=== PATIENT | female | born 1990 | race Hispanic/Latino ===

== ENCOUNTER 2019-04-13 16:53 | Emergency (ER) | payer BC ==
[2019-04-13] MEDS ORDERED: NA CHLORIDE 0.9% 1,000 ML ONE (17:21)
[2019-04-13] MEDS ORDERED: FAMOTIDINE 20 MG/2 ML VIAL IV ONE (17:21)
[2019-04-13] MEDS ORDERED: ONDANSETRON 4 MG/2 ML VIAL ONE ×2 (17:21→20:10)
[2019-04-13 18:04] LABS: Absolute Lymphocytes (CBC) 2.3 K/uL (0.7-4.9); Basophils % 0.3 % (0-1.3); Hematocrit 39.4 % (36.0-45.0); Lymphocytes % 21.7 % (15.3-44.8); MPV 8.6 fL (7.6-11.3); RBC Red Blood Cell Count 4.84 M/uL (3.86-4.86)
[2019-04-13 18:05] LABS: Urine Blood TRACE (NEG); Urine Glucose NEGATIVE (NEG); Urine Protein NEGATIVE (NEG)
[2019-04-13] MEDS ORDERED: LIDOCAINE VISCOUS 2% SOLN 15 ML UDC ONE (18:37)
[2019-04-13] MEDS ORDERED: KETOROLAC 30 MG/ML INJ ONE (18:37)
[2019-04-13] MEDS ORDERED: MAGNE/ALUM HYDROXD 30 ML UCUP ONE (18:37)
[2019-04-13 18:44] LABS: ALT/SGPT 40 U/L (12-78); AST/SGOT 18 U/L (15-37); Albumin 3.9 g/dL (3.4-5.0); Alkaline Phosphatase 86 U/L (45-117); BUN Blood Urea Nitrogen 5 mg/dL (7-18); Bicarbonate 26 mmol/L (21-32); Bilirubin Direct < 0.1 mg/dL (0-0.2); Bilirubin Total 0.3 mg/dL (0.2-1.0); Glucose Level 106 mg/dL (74-106); Lipase 204 U/L (73-393); Potassium 4.1 mmol/L (3.5-5.1); Protein, Total 8.2 g/dL (6.4-8.2); Sodium Level 141 mmol/L (136-145)
[2019-04-13 19:01] LABS: Urine Bacteria <20 /HPF (<20); Urine Culture Reflex Order NOT NEEDED; Urine RBC <5 /HPF (NONE SEEN)
[2019-04-13] MEDS ORDERED: MORPHINE 2 MG/ML SYR ONE (20:08)
--- NOTE | 2019-04-13 20:40 | RAD REPORT ---
EXAM DESCRIPTION: CTAbdomen Pelvis W Contrast - 04/13/2019 8:32 pm CLINICAL HISTORY: Abdominal pain. ABD PAIN COMPARISON: CT HEAD CSPINE MPR WO CONTRAST dated 01/28/2015No comparisons TECHNIQUE: Biphasic CT imaging of the abdomen and pelvis was performed with 100 ml non-ionic IV cont rast. All CT scans are performed using dose optimization technique as appropriate and may include automated exposure control or mA/KV adjustment according to patient size. FINDINGS: The lung bases are clear.Cholecystectomy clips. The liver, spleen, pancreas, adrenal glands and kidneys are within normal limits. Small cyst is seen cortex right kidney. No bowel obstruction, free air, free fluid or abscess. Trace pelvic free fluid. The appendix is carlos l. No evidence of significant lymphadenopathy. No suspicious bony findings. IMPRESSION: No acute intra-abdominal or pelvic finding.
--- NOTE | 2019-04-13 21:31 | EDPHYS ---
Physician Documentation [facility] Name: Ofe Fishman Age: 28 yrs Sex: Female : 1990 Arrival Date: 04/13/2019 Time: 16:55 Bed 24 Private MD: ED Physician Amado Foreman HPI: 04/13 17:15 This 28 yrs old Female presents to ER via Ambulatory with complaints of cp Epigastric Pain. 17:15 The patient presents with abdominal pain in the epigastric area. 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 - Social history:: Smoking status: Patient/guardian denies using tobacco. - Ebola Screening: : No symptoms or risks identified at this time. ROS: 17:25 Constitutional: Negative for body aches, chills, fever, poor PO intake. cp 17:25 Eyes: Negative for injury, pain, redness, and discharge. cp 17:25 ENT: Negative for drainage from ear(s), ear pain, sore throat, difficulty swallowing, difficulty handling secretions. 17:25 Cardiovascular: Negative for chest pain, palpitations. 17:25 Respiratory: Negative for cough, shortness of breath, wheezing. 17:25 Abdomen/GI: Positive for abdominal pain, nausea, diarrhea, of the epigastric area, Negative for vomiting, constipation, anorexia, dysphagia, black/tarry stool, rectal bleeding. 17:25 Back: Positive for pain at rest, of the low back area. 17:25 : Negative for urinary symptoms. 17:25 Skin: Negative for cellulitis, rash. 17:25 Neuro: Negative for altered mental status, headache, weakness. 17:25 All other systems are negative. Exam: 17:30 Constitutional: The patient appears in no acute distress, alert, awake, non-toxic, well cp developed, well nourished. 17:30 Head/Face: Normocephalic, atraumatic. cp 17:30 Eyes: Periorbital structures: appear normal, Pupils: equal, round, and reactive to light and accomodation, Extraocular movements: intact throughout, Conjunctiva: normal, no exudate, no injection, Sclera: no appreciated abnormality, Lids and lashes: appear normal, bilaterally. 17:30 ENT: External ear(s): are unremarkable, Ear canal(s): are normal, clear, TM's: dullness, bilaterally, Nose: is normal, Mouth: Lips: moist, Oral mucosa: pink and intact, moist, Posterior pharynx: is normal, airway is patent, no erythema, no exudate. 17:30 Neck: ROM/movement: is normal, is supple, without pain, no range of motions limitations, no nuchal rigidity. 17:30 Chest/axilla: Inspection: normal, Palpation: is normal, no crepitus, no tenderness. 17:30 Cardiovascular: Rate: normal, Rhythm: regular. 17:30 Respiratory: the patient does not display signs of respiratory distress, Respirations: normal, no use of accessory muscles, no retractions, no splinting, no tachypnea, labored breathing, is not present, shallow respirations, are not present, Breath sounds: are clear throughout, no decreased breath sounds, no stridor, no wheezing. 17:30 Abdomen/GI: Inspection: abdomen appears normal, Bowel sounds: active, all quadrants, Palpation: soft, in all quadrants, moderate abdominal tenderness, in the epigastric area, rebound tenderness, is not appreciated, voluntary guarding, is elicited in the epigastric area. 17:30 Back: pain, that is very mild, of the low back area, ROM is normal. 17:30 Skin: no rash present. 17:30 Neuro: Orientation: to person, place \T\ time. Mentation: is normal. Vital Signs: 16:56 BP 120 / 82; Pulse 96; Resp 18; Temp 98.1; Pulse Ox 100% on R/A; Weight 63.5 kg; Height la1 4 ft. 11 in. (149.86 cm); 19:53 BP 121 / 68; Pulse 95; Resp 17; Pulse Ox 100% on R/A; mg2 21:00 BP 115 / 78; Pulse 98; Resp 18; Pulse Ox 100% on R/A; mg2 22:01 BP 123 / 77; Pulse 90; Resp 18; Temp 98.5; Pulse Ox 100% on R/A; Pain 1/10; mg2 16:56 Body Mass Index 28.28 (63.50 kg, 149.86 cm) la1 MDM: 17:05 Patient medically screened. cp 18:00 Differential diagnosis: appendicitis, bowel obstruction, gastritis, pancreatitis, cp Peptic Ulcer Disease, Perf. Duodenal Ulcer, Perf. Gastric Ulcer, Pyelonephritis, Ureterolithiasis, urinary tract infection. 21:30 Data reviewed: vital signs, nurses notes, lab test result(s), radiologic studies, CT cp scan. 21:30 Counseling: I had a detailed discussion with the patient and/or guardian regarding: the cp historical points, exam findings, and any diagnostic results supporting the discharge/admit diagnosis, lab results, radiology results, to return to the emergency department if symptoms worsen or persist or if there are any questions or concerns that arise at home. Response to treatment: the patient's symptoms have markedly improved after treatment. Special discussion: Based on the patient's Hx, exam, and Dx evaluation, there is no indication for emergent surgery or inpatient Tx. It is understood by the patient/guardian that if the Sx's persist or worsen they need to return immediately for re-evaluation. ED course: VSS. Pain and nausea improved. CT negative for acute findings. Patient reports history of cholecystectomy. Will discharge to home for continued monitoring. Recommend OTC Prilosec or Nexium daily. 04/13 17:10 Order name: Basic Metabolic Panel; Complete Time: 19:16 04/13 21:08 Interpretation: BUN 5; GFR 82. 04/13 17:10 Order name: CBC with Diff; Complete Time: 18:16 04/13 18:16 Interpretation: Reviewed. 04/13 17:10 Order name: Creatinine for Radiology; Complete Time: 19:16 04/13 17:10 Order name: Hepatic Function; Complete Time: 19:16 04/13 17:10 Order name: Lipase; Complete Time: 19:16 04/13 18:01 Order name: Urine Microscopic Only; Complete Time: 19:16 [facility] 04/13 18:02 Order name: Urine Dipstick--Ancillary (enter results) [facility] 04/13 18:02 Order name: Urine --Ancillary (enter results) [facility] 04/13 18:05 Order name: Urine --Ancillary [facility] 04/13 18:05 Order name: Urine Dipstick-Ancillary [facility] 04/13 20:04 Order name: CT Abd/Pelvis - IV Contrast Only; Complete Time: 21:08 cp 04/13 17:10 Order name: IV Saline Lock; Complete Time: 18:23 cp 04/13 17:10 Order name: Labs collected and sent; Complete Time: 18:23 cp 04/13 17:10 Order name: Urine Dipstick-Ancillary (obtain specimen); Complete Time: 18:03 cp 04/13 17:10 Order name: Urine Test (obtain specimen); Complete Time: 18:02 cp 04/13 21:08 Order name: PO challenge; Complete Time: 21:37 cp Administered Medications: 18:05 Drug: NS 0.9% 1000 ml Route: IV; Rate: 1 bolus; Site: right antecubital; mg2 19:54 Follow up: Response: No adverse reaction; IV Status: Completed infusion; IV Intake: mg2 1000ml 18:05 Drug: Zofran 4 mg Route: IVP; Site: right antecubital; mg2 19:54 Follow up: Response: No adverse reaction mg2 18:05 Drug: Pepcid 20 mg Route: IVP; Site: right antecubital; mg2 19:54 Follow up: Response: No adverse reaction mg2 18:42 Drug: GI Cocktail without - (Maalox Suspension 30 ml, Lidocaine Liquid 2 % 15 mg2 ml) Route: PO; 19:53 Follow up: Response: No adverse reaction mg2 18:42 Drug: TORadol 30 mg Route: IVP; Site: right antecubital; mg2 19:53 Follow up: Response: No adverse reaction mg2 20:10 Drug: morphine 2 mg Route: IVP; Site: right antecubital; mg2 21:37 Follow up: Response: No adverse reaction; Marked relief of symptoms mg2 20:10 Drug: Zofran 4 mg Route: IVP; Site: right antecubital; mg2 21:37 Follow up: Response: No adverse reaction; Marked relief of symptoms mg2 Disposition: 04/13/19 21:30 Discharged to Home. Impression: Upper abdominal pain, unspecified. - Condition is Stable. - Discharge Instructions: Abdominal Pain, Adult. - Prescriptions for Bentyl 20 mg Oral Tablet - take 2 tablet by ORAL route every 6 hours As needed; 40 tablet. Zofran 4 mg Oral Tablet - take 1 tablet by ORAL route every 12 hours As needed; 20 tablet. - Medication Reconciliation Form, Thank You Letter, Antibiotic Education, Prescription Opioid Use form. - Follow up: Ashu Harden MD; When: 2 - 3 days; Reason: Worsening of condition. - Problem is new. - Symptoms have improved. Addendum: 04/16/2019 00:43 Co-signature as Attending Physician, Amado Foreman MD. r n Signatures: Dispatcher [employer] [facility] Amado Foreman MD MD rn Khris Mary RN RN la1 Eduard Crabtree PA PA cp Cuong Luo RN RN mg2 Corrections: (The following items were deleted from the chart) 04/13 20:52 19:17 Abdomen With Erect+RAD.RAD.BRZ ordered. [facility] 22:02 21:30 04/13/2019 21:30 Discharged to Home. Impression: Upper abdominal pain, mg2 unspecified. Condition is Stable. Forms are Medication Reconciliation Form, Thank You Letter, Antibiotic Education, Prescription Opioid Use. Follow up: Ashu Harden; When: 2 - 3 days; Reason: Worsening of condition. Problem is new. Symptoms have improved. cp
--- NOTE | 2019-04-13 21:31 | ER ---
Nurse's Notes [facility] Name: Ofe Fishman Age: 28 yrs Sex: Female : 1990 Arrival Date: 04/13/2019 Time: 16:55 Bed 24 Private MD: Diagnosis: Upper abdominal pain, unspecified Presentation: 04/13 16:56 Presenting complaint: Patient states: upper abd pain for the last three days with la1 diarrhea and nausea. Transition of care: patient was not received from another setting of care. Onset of symptoms was April 13, 2019. Risk Assessment: Do you want to hurt yourself or someone else? Patient reports no desire to harm self or others. Initial Sepsis Screen: Does the patient meet any 2 criteria? No. Patient's initial sepsis screen is negative. Does the patient have a suspected source of infection? No. Patient's initial sepsis screen is negative. Care prior to arrival: None. 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 - Social history:: Smoking status: Patient/guardian denies using tobacco. - Ebola Screening: : No symptoms or risks identified at this time. Screenin:52 Abuse screen: Denies threats or abuse. Denies injuries from another. Nutritional mg2 screening: No deficits noted. Tuberculosis screening: No symptoms or risk factors identified. Fall Risk IV access (20 points). Assessment: 19:00 General: Appears in no apparent distress. uncomfortable, Behavior is cooperative, mg2 restless, in pain. 19:00 Pain: Complains of pain in abdomen. Neuro: Level of Consciousness is awake, alert, mg2 obeys commands, Oriented to person, place, time, situation. Cardiovascular: Capillary refill < 3 seconds Patient's skin is warm and dry. Respiratory: Airway is patent Respiratory effort is even, unlabored, Respiratory pattern is regular, symmetrical. GI: Abdomen is non-distended, Reports lower abdominal pain, upper abdominal pain, nausea. : No signs and/or symptoms were reported regarding the genitourinary system. EENT: No signs and/or symptoms were reported regarding the EENT system. Derm: Skin is intact, is healthy with good turgor, Skin is pink, warm \T\ dry. normal. Musculoskeletal: Circulation, motion, and sensation intact. Capillary refill < 3 seconds. 20:10 Reassessment: patient is vomiting. provider informed. mg2 22:01 Reassessment: Patient appears in no apparent distress at this time. Patient is alert, mg2 oriented x 3, equal unlabored respirations, skin warm/dry/pink. Patient denies pain at this time. Patient states feeling better. Vital Signs: 16:56 BP 120 / 82; Pulse 96; Resp 18; Temp 98.1; Pulse Ox 100% on R/A; Weight 63.5 kg; Height la1 4 ft. 11 in. (149.86 cm); 19:53 BP 121 / 68; Pulse 95; Resp 17; Pulse Ox 100% on R/A; mg2 21:00 BP 115 / 78; Pulse 98; Resp 18; Pulse Ox 100% on R/A; mg2 22:01 BP 123 / 77; Pulse 90; Resp 18; Temp 98.5; Pulse Ox 100% on R/A; Pain 1/10; mg2 16:56 Body Mass Index 28.28 (63.50 kg, 149.86 cm) la1 ED Course: 16:55 Patient arrived in ED. as 16:56 Triage completed. la1 16:57 Arm band placed on left wrist. la1 16:58 Eduard Crabtree PA is PHCP. cp 16:58 Amado Foreman MD is Attending Physician. cp 17:12 Cuong Luo, GUY is Primary Nurse. mg2 19:30 Inserted saline lock: 20 gauge in right antecubital area, using aseptic technique. mg2 19:52 Patient has correct armband on for positive identification. Pulse ox on. NIBP on. Door mg2 closed. Warm blanket given. 19:53 No provider procedures requiring assistance completed. mg2 20:32 CT Abd/Pelvis - IV Contrast Only In Process Unspecified. EDMS 20:32 CT completed. Patient tolerated procedure well. Patient moved back from CT. kw1 21:29 Ashu Harden MD is Referral Physician. cp 22:02 IV discontinued, intact, bleeding controlled, No redness/swelling at site. Pressure mg2 dressing applied. Administered Medications: 18:05 Drug: NS 0.9% 1000 ml Route: IV; Rate: 1 bolus; Site: right antecubital; mg2 19:54 Follow up: Response: No adverse reaction; IV Status: Completed infusion; IV Intake: mg2 1000ml 18:05 Drug: Zofran 4 mg Route: IVP; Site: right antecubital; mg2 19:54 Follow up: Response: No adverse reaction mg2 18:05 Drug: Pepcid 20 mg Route: IVP; Site: right antecubital; mg2 19:54 Follow up: Response: No adverse reaction mg2 18:42 Drug: GI Cocktail without - (Maalox Suspension 30 ml, Lidocaine Liquid 2 % 15 mg2 ml) Route: PO; 19:53 Follow up: Response: No adverse reaction mg2 18:42 Drug: TORadol 30 mg Route: IVP; Site: right antecubital; mg2 19:53 Follow up: Response: No adverse reaction mg2 20:10 Drug: morphine 2 mg Route: IVP; Site: right antecubital; mg2 21:37 Follow up: Response: No adverse reaction; Marked relief of symptoms mg2 20:10 Drug: Zofran 4 mg Route: IVP; Site: right antecubital; mg2 21:37 Follow up: Response: No adverse reaction; Marked relief of symptoms mg2 Intake: 19:54 IV: 1000ml; Total: 1000ml. mg2 Outcome: 21:30 Discharge ordered by . carla 22:01 Discharged to home ambulatory. mg2 22:01 Condition: good 22:01 Discharge instructions given to patient, Instructed on discharge instructions, follow up and referral plans. medication usage, Demonstrated understanding of instructions, follow-up care, medications, Prescriptions given X 2. 22:02 Patient left the ED. mg2 Signatures: Dispatcher [employer] Meche Novak Lee RN RN la1 Eduard Crabtree PA PA cp Wilhelm, Kimberly kw1 Cuong Luo RN RN mg2
[2019-04-13 23:15] VITALS: O2SAT 100
[2019-04-13 23:19] VITALS: BP 123/77; TEMP 98.5
== END 2019-04-13 22:02 | disposition home or self-care (01) ==
LOC: ER 16:53
DX: R10.10 Upper abdominal pain, unspecified (principal)
CPT/HCPCS: 96361; 85025; 80048; 36415; 81025; 80076; 83690; 74177; 96375; 96374; 99284; Q9967; J2270; J7030; J2405 ×2; 81003; 81015

== ENCOUNTER 2019-04-15 19:24 | Emergency (ER) | payer BC ==
[2019-04-15] MEDS ORDERED: KETOROLAC 30 MG/ML INJ ONE (20:25)
[2019-04-15] MEDS ORDERED: METRONIDAZOLE 500mg IVPB 500 MG/100 ML BAG IV ONE (20:25)
[2019-04-15] MEDS ORDERED: ONDANSETRON 4 MG/2 ML VIAL ONE (20:25)
[2019-04-15] MEDS ORDERED: Levofloxacin500mg IV 500 MG/100 ML BAG IV ONE (20:25)
[2019-04-15] MEDS ORDERED: NA CHLORIDE 0.9% 1,000 ML ONE (20:26)
[2019-04-15 20:33] LABS: Basophils % 0.4 % (0-1.3); Hematocrit 37.4 % (36.0-45.0); Lymphocytes % 20.3 % (15.3-44.8); MPV 8.5 fL (7.6-11.3)
[2019-04-15 20:38] LABS: Urine Blood NEGATIVE (NEG); Urine Glucose NEGATIVE (NEG); Urine Protein NEGATIVE (NEG); Urine Specific Gravity 1.015 (1.005-1.030); Urine pH 7.5 (5.0-7.0)
[2019-04-15 20:44] LABS: Urine Bacteria <20 /HPF (<20); Urine Culture Reflex Order NOT NEEDED; Urine RBC <5 /HPF (NONE SEEN)
[2019-04-15 20:49] LABS: ALT/SGPT 30 U/L (12-78); AST/SGOT 15 U/L (15-37); Alkaline Phosphatase 80 U/L (45-117); BUN Blood Urea Nitrogen 7 mg/dL (7-18); Bicarbonate 29 mmol/L (21-32); Bilirubin Direct 0.1 mg/dL (0-0.2); Bilirubin Total 0.3 mg/dL (0.2-1.0); Glucose Level 96 mg/dL (74-106); Lipase 211 U/L (73-393); Sodium Level 140 mmol/L (136-145)
--- NOTE | 2019-04-15 21:23 | EDPHYS ---
Physician Documentation [facility] Name: Ofe Fishman Age: 28 yrs Sex: Female : 1990 Arrival Date: 04/15/2019 Time: 19:27 Bed 17 Private MD: ED Physician Ashu Cagle HPI: 04/15 21:05 This 28 yrs old Female presents to ER via Ambulatory with complaints of wa Abdominal Pain, Back Pain. 21:07 The patient presents with abdominal pain in the epigastric area, radiates to back. wa diarrhea. Onset: The symptoms/episode began/occurred 4 day(s) ago. The symptoms radiate to back. Associated signs and symptoms: Pertinent positives: diarrhea, nausea, Pertinent negatives: shortness of breath, vaginal discharge, vomiting. The symptoms are described as achy, crampy. Modifying factors: The symptoms are alleviated by nothing, the symptoms are aggravated by nothing. Severity of pain: At its worst the pain was moderate in the emergency department the pain is actually worse moderately. The patient has not experienced similar symptoms in the past. The patient has been recently seen by a physician: in this ED a couple days ago. seen here for same. states still with diarrhea. abd pain worsening. 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 - Social history:: Smoking status: Patient/guardian denies using tobacco. - Ebola Screening: : No symptoms or risks identified at this time. - Family history:: not pertinent. - Hospitalizations: : No recent hospitalization is reported. ROS: 21:16 Constitutional: Negative for fever, chills, and weight loss, Eyes: Negative for injury, wa pain, redness, and discharge, ENT: Negative for injury, pain, and discharge, Neck: Negative for injury, pain, and swelling, Cardiovascular: Negative for chest pain, palpitations, and edema, Respiratory: Negative for shortness of breath, cough, wheezing, and pleuritic chest pain, Back: Negative for injury and pain, : Negative for injury, bleeding, discharge, and swelling, MS/Extremity: Negative for injury and deformity, Skin: Negative for injury, rash, and discoloration, Neuro: Negative for headache, weakness, numbness, tingling, and seizure, Psych: Negative for depression, anxiety, suicide ideation, homicidal ideation, and hallucinations. 21:16 Abdomen/GI: Positive for abdominal pain, nausea, diarrhea. 21:16 All other systems are negative. Exam: 21:16 Constitutional: This is a well developed, well nourished patient who is awake, alert, wa and in no acute distress. Head/Face: Normocephalic, atraumatic. Eyes: Pupils equal round and reactive to light, extra-ocular motions intact. Lids and lashes normal. Conjunctiva and sclera are non-icteric and not injected. Cornea within normal limits. Periorbital areas with no swelling, redness, or edema. ENT: Nares patent. No nasal discharge, no septal abnormalities noted. Tympanic membranes are normal and external auditory canals are clear. Oropharynx with no redness, swelling, or masses, exudates, or evidence of obstruction, uvula midline. Mucous membranes moist. Neck: Trachea midline, no thyromegaly or masses palpated, and no cervical lymphadenopathy. Supple, full range of motion without nuchal rigidity, or vertebral point tenderness. No Meningismus. Chest/axilla: Normal chest wall appearance and motion. Nontender with no deformity. No lesions are appreciated. Cardiovascular: Regular rate and rhythm with a normal S1 and S2. No gallops, murmurs, or rubs. Normal PMI, no JVD. No pulse deficits. Respiratory: Lungs have equal breath sounds bilaterally, clear to auscultation and percussion. No rales, rhonchi or wheezes noted. No increased work of breathing, no retractions or nasal flaring. Back: No spinal tenderness. No costovertebral tenderness. Full range of motion. Skin: Warm, dry with normal turgor. Normal color with no rashes, no lesions, and no evidence of cellulitis. MS/ Extremity: Pulses equal, no cyanosis. Neurovascular intact. Full, normal range of motion. Neuro: Awake and alert, GCS 15, oriented to person, place, time, and situation. Cranial nerves II-XII grossly intact. Motor strength 5/5 in all extremities. Sensory grossly intact. Cerebellar exam normal. Normal gait. Psych: Awake, alert, with orientation to person, place and time. Behavior, mood, and affect are within normal limits. 21:16 Abdomen/GI: Inspection: abdomen appears normal, Bowel sounds: normal, in all quadrants, Palpation: soft, in all quadrants, moderate abdominal tenderness, in the epigastric area and left upper quadrant. Vital Signs: 19:42 BP 127 / 80; Pulse 68; Resp 18; Temp 98; Pulse Ox 100% ; Weight 63.5 kg; Height 4 ft. ea 11 in. (149.86 cm); Pain 10/10; 20:52 BP 104 / 44; Pulse 58; Resp 16; Pulse Ox 100% on R/A; wh 21:35 BP 111 / 61; Pulse 65; Resp 18; Pulse Ox 100% on R/A; wh 19:42 Body Mass Index 28.28 (63.50 kg, 149.86 cm) ea MDM: 19:34 Patient medically screened. pr 21:17 Data reviewed: vital signs, nurses notes. pr 21:18 Differential diagnosis: diverticulitis, non-specific abd pain, colitis?. ED course: pr pt's last CT a couple days back negative. still with pain and diarrhea. already post cholecystectomy in 2013. consider colitis. will give abx. plan to d/c with same and advise close f/u. unlikely acute appy based on clinical exam and presentation. 21:21 Response to treatment: the patient's symptoms have markedly improved after treatment. pr ED course: labs noted wnl. stool studies pending. will d/c home. 04/15 20: Order name: Basic Metabolic Panel; Complete Time: 21:02 pr 04/15 20: Order name: CBC with Diff; Complete Time: 21:02 pr 04/15 20: Order name: Hepatic Function; Complete Time: 21:02 pr 04/15 20: Order name: Lipase; Complete Time: 21:03 pr 04/15 20: Order name: Urine Microscopic Only; Complete Time: 21:03 pr 04/15 20:02 Order name: Fecal Leukocyte Stain pr 04/15 20:02 Order name: Occult Blood pr 04/15 20: Order name: Rotavirus Antigen pr 04/15 20: Order name: Stool Culture pr 04/15 20:26 Order name: Urine Dipstick--Ancillary (enter results); Complete Time: 21:02 cm6 04/15 20:26 Order name: Urine --Ancillary (enter results); Complete Time: 21:02 [facility] 04/15 20: Order name: IV Saline Lock; Complete Time: : pr 04/15 20: Order name: Labs collected and sent; Complete Time: : pr 04/15 20: Order name: Urine Dipstick-Ancillary (obtain specimen); Complete Time: pr 04/15 20: Order name: Urine Test (obtain specimen); Complete Time: : pr Administered Medications: 20:28 Drug: TORadol 30 mg Route: IVP; Site: right antecubital; 21:36 Follow up: Response: No adverse reaction; Pain is decreased 20:30 Drug: Zofran 4 mg Route: IVP; Site: right antecubital; 21:36 Follow up: Response: No adverse reaction; Nausea is decreased 20:32 Drug: NS 0.9% 1000 ml Route: IV; Rate: 1 bolus; Site: right antecubital; 21:36 Follow up: Response: No adverse reaction; IV Status: Completed infusion 20:34 Drug: Flagyl 500 mg Volume: 100 ml; Route: IVPB; Rate: 200 ml/hr; Infused Over: 30 wh mins; Site: right antecubital; 21:36 Follow up: Response: No adverse reaction; IV Status: Completed infusion 21:03 Drug: LevaQUIN 500 mg Volume: 100 ml; Route: IVPB; Infused Over: 60 mins; Site: right antecubital; 21:36 Follow up: Response: No adverse reaction; IV Status: Completed infusion Disposition: 04/15/19 21:22 Discharged to Home. Impression: abdominal pain, diarrhea. - Condition is Stable. - Discharge Instructions: Abdominal Pain, Adult, [id number], Diarrhea, Adult, [id number]. - Prescriptions for Zofran 4 mg Oral Tablet - take 1 tablet by ORAL route every 12 hours As needed; 20 tablet. Flagyl 500 mg Oral Tablet - take 1 tablet by ORAL route every 12 hours for 7 days; 14 tablet. Cipro 500 mg Oral Tablet - take 1 tablet by ORAL route every 12 hours for 7 days; 14 tablet. - Medication Reconciliation Form, Thank You Letter, Antibiotic Education, Prescription Opioid Use form. - Follow up: Ashu Harden MD; When: 1 - 2 days; Reason: Recheck today's complaints. - Problem is new. - Symptoms have improved. - Notes: take antibiotics as prescribed and follow up the gastro doctor as discussed. return if worsening. you may take tylenol for pain Signatures: Dispatcher [employer] EDSujey Louise, Sadia Danielle RN, ea [facility] MD wa Corrections: (The following items were deleted from the chart) 21:39 21:22 04/15/2019 21:22 Discharged to Home. Impression: abdominal pain; diarrhea. Condition is Stable. Forms are Medication Reconciliation Form, Thank You Letter, Antibiotic Education, Prescription Opioid Use. Follow up: Ashu Harden; When: 1 - 2 days; Reason: Recheck today's complaints. Problem is new. Symptoms have improved. wa
--- NOTE | 2019-04-15 21:23 | ER ---
Nurse's Notes [facility] Name: Ofe Fishman Age: 28 yrs Sex: Female : 1990 Arrival Date: 04/15/2019 Time: 19:27 Bed 17 Private MD: Diagnosis: abdominal pain;diarrhea Presentation: 04/15 19:39 Presenting complaint: Patient states: Reports epigastric pain that goes thru the back. ea Pt reports she had similar symptoms on Sunday and was seen in the ED and was sent home with nausea medication and antidiarrheals. Pt reports pain has worsened and now she is having constipation and diarrhea. Transition of care: patient was not received from another setting of care. Onset of symptoms was April 15, 2019. Risk Assessment: Do you want to hurt yourself or someone else? Patient reports no desire to harm self or others. Initial Sepsis Screen: Does the patient meet any 2 criteria? No. Patient's initial sepsis screen is negative. Does the patient have a suspected source of infection? No. Patient's initial sepsis screen is negative. Care prior to arrival: None. 19:39 Method Of Arrival: Ambulatory ea 19:39 Acuity: URIEL 3 ea Triage Assessment: 19:43 General: Appears uncomfortable, Behavior is appropriate for age. Pain: Complains of ea pain in epigastric area Pain radiates to back Pain currently is 10 out of 10 on a pain scale. Pain began 2-3 days ago. Is continuous. Neuro: Level of Consciousness is awake, alert, obeys commands, Oriented to person, place, time, situation. Cardiovascular: Patient's skin is warm and dry. Respiratory: Airway is patent Respiratory effort is even, unlabored, Respiratory pattern is regular, symmetrical. GI: Reports upper abdominal pain, constipation, diarrhea, nausea. Derm: Skin is pink, warm \T\ dry. 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 - Social history:: Smoking status: Patient/guardian denies using tobacco. - Ebola Screening: : No symptoms or risks identified at this time. - Family history:: not pertinent. - Hospitalizations: : No recent hospitalization is reported. Screenin:42 Abuse screen: Denies threats or abuse. Nutritional screening: No deficits noted. ea Tuberculosis screening: No symptoms or risk factors identified. Fall Risk None identified. Assessment: 20:49 Reassessment: Patient appears in no apparent distress at this time. No changes from previously documented assessment. Patient and/or family updated on plan of care and expected duration. Pain level reassessed. Patient is alert, oriented x 3, equal unlabored respirations, skin warm/dry/pink. 20:50 General: Appears in no apparent distress. Behavior is calm, cooperative, appropriate wh for age. Pain: Complains of pain in epigastric area Pain radiates to back Pain began 2-3 days ago. Neuro: Level of Consciousness is awake, alert, obeys commands, Oriented to person, place, time, situation, Appropriate for age. Cardiovascular: Heart tones S1 S2. Respiratory: Airway is patent Respiratory effort is even, unlabored, Respiratory pattern is regular, symmetrical, Breath sounds are clear bilaterally. GI: Abdomen is flat, non-distended, Bowel sounds present X 4 quads. Abd is soft and non tender X 4 quads. GI: Reports constipation, diarrhea. : No signs and/or symptoms were reported regarding the genitourinary system. EENT: No signs and/or symptoms were reported regarding the EENT system. Derm: Skin is intact, is healthy with good turgor, Skin is pink, warm \T\ dry. normal. Musculoskeletal: Circulation, motion, and sensation intact. 21:34 Reassessment: Patient appears in no apparent distress at this time. No changes from previously documented assessment. Patient and/or family updated on plan of care and expected duration. Pain level reassessed. Patient is alert, oriented x 3, equal unlabored respirations, skin warm/dry/pink. Patient denies pain at this time. Patient states feeling better. Patient states symptoms have improved. Vital Signs: 19:42 BP 127 / 80; Pulse 68; Resp 18; Temp 98; Pulse Ox 100% ; Weight 63.5 kg; Height 4 ft. ea 11 in. (149.86 cm); Pain 10/10; 20:52 BP 104 / 44; Pulse 58; Resp 16; Pulse Ox 100% on R/A; wh 21:35 BP 111 / 61; Pulse 65; Resp 18; Pulse Ox 100% on R/A; wh 19:42 Body Mass Index 28.28 (63.50 kg, 149.86 cm) ea ED Course: 19:27 Patient arrived in ED. cf2 19:34 Ashu Cagle MD is Attending Physician. wa 19:41 Triage completed. ea 19:43 Patient has correct armband on for positive identification. Placed in gown. Bed in low ea position. Call light in reach. 19:43 Arm band placed on right wrist. Patient placed in an exam room, on a stretcher, on ea pulse oximetry. 19:49 Sadia Caruso is Primary Nurse. 20:20 Inserted saline lock: 22 gauge in right antecubital area, using aseptic technique. Blood collected. 21:22 Ashu Harden MD is Referral Physician. wa 21:37 No provider procedures requiring assistance completed. IV discontinued, intact, wh bleeding controlled, No redness/swelling at site. Administered Medications: 20:28 Drug: TORadol 30 mg Route: IVP; Site: right antecubital; 21:36 Follow up: Response: No adverse reaction; Pain is decreased 20:30 Drug: Zofran 4 mg Route: IVP; Site: right antecubital; 21:36 Follow up: Response: No adverse reaction; Nausea is decreased 20:32 Drug: NS 0.9% 1000 ml Route: IV; Rate: 1 bolus; Site: right antecubital; 21:36 Follow up: Response: No adverse reaction; IV Status: Completed infusion 20:34 Drug: Flagyl 500 mg Volume: 100 ml; Route: IVPB; Rate: 200 ml/hr; Infused Over: 30 wh mins; Site: right antecubital; 21:36 Follow up: Response: No adverse reaction; IV Status: Completed infusion 21:03 Drug: LevaQUIN 500 mg Volume: 100 ml; Route: IVPB; Infused Over: 60 mins; Site: right antecubital; 21:36 Follow up: Response: No adverse reaction; IV Status: Completed infusion Outcome: 21:22 Discharge ordered by . wa 21:34 Discharged to home ambulatory, with family. 21:34 Condition: stable 21:34 Discharge instructions given to patient, family, Instructed on discharge instructions, follow up and referral plans. medication usage, POC Abdominal pain and Diarrhea Demonstrated understanding of instructions, follow-up care, medications, POC Prescriptions given X 3. 21:39 Patient left the ED. Signatures: Sujey Calderon RN RN ea Habalo, Winsy Ashu Cagle MD MD wa Frazier, Celesta cf2 Corrections: (The following items were deleted from the chart) 21:38 20:20 Inserted saline lock: 22 gauge in left antecubital area, using aseptic technique. Blood collected.
[2019-04-16 00:59] VITALS: TEMP 98; O2SAT 100
[2019-04-16 01:01] VITALS: BP 111/61
== END 2019-04-15 21:39 | disposition home or self-care (01) ==
LOC: ER 19:24
DX: R19.7 Diarrhea, unspecified (principal)
CPT/HCPCS: 96365; 87045; 85025; 80048; 36415; 89055; 82274; 81025; 80076; 87046; 83690; 87425; 96375; 99284; J7030; J2405; 81003; 81015; 96368

== ENCOUNTER 2019-04-23 16:53 | Emergency (ER) | payer BC ==
[2019-04-23 17:46] LABS: Absolute Lymphocytes (CBC) 0.8 K/uL (0.7-4.9); Basophils % 0.1 % (0-1.3); Hematocrit 35.3 % (36.0-45.0); MPV 8.4 fL (7.6-11.3); RBC Red Blood Cell Count 4.26 M/uL (3.86-4.86)
[2019-04-23 17:53] LABS: ALT/SGPT 22 U/L (12-78); AST/SGOT 18 U/L (15-37); Albumin 3.4 g/dL (3.4-5.0); Alkaline Phosphatase 52 U/L (45-117); BUN Blood Urea Nitrogen 13 mg/dL (7-18); Bicarbonate 23 mmol/L (21-32); Bilirubin Direct 0.2 mg/dL (0-0.2); Bilirubin Total 0.6 mg/dL (0.2-1.0); Glucose Level 103 mg/dL (74-106); Lipase 158 U/L (73-393); Potassium 3.4 mmol/L (3.5-5.1); Protein, Total 6.9 g/dL (6.4-8.2); Sodium Level 140 mmol/L (136-145)
[2019-04-23 19:07] LABS: Urine Blood TRACE (NEG); Urine Glucose NEGATIVE (NEG); Urine Protein NEGATIVE (NEG)
[2019-04-23] MEDS ORDERED: MORPHINE 2 MG/ML SYR ONE (19:21)
[2019-04-23] MEDS ORDERED: ONDANSETRON 4 MG/2 ML VIAL ONE (19:21)
--- NOTE | 2019-04-23 19:25 | RAD REPORT ---
EXAM DESCRIPTION: CT - Abdomen Pelvis W Contrast - 04/23/2019 6:59 pm CLINICAL HISTORY: Abdominal pain COMPARISON: 04/13/2019 TECHNIQUE: Computed axial tomography of the abdomen pelvis was obtained. 100 cc Isovue-300 was admin istered intravenously. Oral contrast was not requested which limits evaluation of bowel. All CT scans are performed using dose optimization technique as appropriate and may include automated exposure control or mA/KV adjustment according to patient size. FINDINGS: The liver, spleen, pancreas, adrenal and left kidney appear unremarkable. Mild cortical thinning right kidney perhaps secondary to prior inflammation. There is no evidence of diverticulitis. Normal appendix Mild stranding is present within the mesentery of the upper right pelvis No adnexal mass Fluid within nondilated large small bowel A tampon is present within vagina IMPRESSION: Fluid within nondilated large and small bowel may indicate an enteritis Mild stranding within the mesentery of the upper right pelvis of uncertain etiology. Normal appendix.
--- NOTE | 2019-04-23 19:49 | ER ---
Nurse's Notes [facility] Name: Ofe Fishman Age: 28 yrs Sex: Female : 1990 Arrival Date: 04/23/2019 Time: 16:58 Bed 7 Private MD: Diagnosis: Vomiting;Diarrhea, unspecified Presentation: 04/23 17:02 Presenting complaint: EMS states: N/V/D x 3 days w/ coffee ground emesis, also c/o ph epigastric painVSS, BGL 130, was seen here " a few days ago" for diarrhea, prescribed Cipro and Flagyl. Transition of care: patient was not received from another setting of care. Onset of symptoms was April 23, 2019. Risk Assessment: Do you want to hurt yourself or someone else? Patient reports no desire to harm self or others. Initial Sepsis Screen: Does the patient meet any 2 criteria? No. Patient's initial sepsis screen is negative. Does the patient have a suspected source of infection? No. Patient's initial sepsis screen is negative. Care prior to arrival: Medication(s) given: Normal saline infusion, 250 zofran 4 mg, IV initiated. 18 GA, in the right antecubital area, Glucose check: 130. 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 - Social history:: Smoking status: Patient/guardian denies using tobacco. - Ebola Screening: : No symptoms or risks identified at this time. Screenin:09 Abuse screen: Denies threats or abuse. Denies injuries from another. Nutritional ph screening: No deficits noted. Tuberculosis screening: No symptoms or risk factors identified. Fall Risk None identified. Assessment: 17:09 General: Appears in no apparent distress. uncomfortable, well groomed, Behavior is ph calm, cooperative, appropriate for age. Pain: Complains of pain in epigastric area. Neuro: Level of Consciousness is awake, alert, obeys commands, Oriented to person, place, time, situation, Reports dizziness. Cardiovascular: Capillary refill < 3 seconds in bilateral fingers Patient's skin is warm and dry. Respiratory: Airway is patent Respiratory effort is even, unlabored, Respiratory pattern is regular, symmetrical, Denies shortness of breath. GI: Reports diarrhea, epigastric pain, nausea, vomiting. Derm: Skin is intact, Skin is pink, warm \\T\\ dry. Musculoskeletal: Circulation, motion, and sensation intact. Range of motion: intact in all extremities. 18:13 Reassessment: Patient appears in no apparent distress at this time. Patient and/or ph family updated on plan of care and expected duration. Pain level reassessed. Patient is alert, oriented x 3, equal unlabored respirations, skin warm/dry/pink. Pt ambulated to restroom w/ steady gait. 19:27 General: Appears in no apparent distress. uncomfortable, well groomed, Behavior is jd3 calm, cooperative, appropriate for age. Pain: Complains of pain in epigastric area Quality of pain is described as sharp, tender. Neuro: Level of Consciousness is awake, alert, obeys commands, Oriented to person, place, time, situation. Cardiovascular: Denies chest pain, Capillary refill < 3 seconds Patient's skin is warm and dry. Respiratory: Airway is patent Respiratory effort is even, unlabored, Respiratory pattern is regular, symmetrical, Denies cough, shortness of breath. GI: Abdomen is round non-distended, Bowel sounds present X 4 quads. Abd is soft X 4 quads Abdomen is tender to palpation in right upper quadrant and left upper quadrant Reports diarrhea, epigastric pain, nausea, vomiting. : No signs and/or symptoms were reported regarding the genitourinary system. EENT: No signs and/or symptoms were reported regarding the EENT system. Derm: Skin is intact, Skin is dry, Skin is normal, Skin temperature is warm. Musculoskeletal: Circulation, motion, and sensation intact. Range of motion: intact in all extremities. 19:44 Reassessment: provider at bedside discussing plan of care with pt. [email or web address] 20:09 Reassessment: Patient appears in no apparent distress at this time. Patient and/or jd3 family updated on plan of care and expected duration. Pain level reassessed. Patient is alert, oriented x 3, equal unlabored respirations, skin warm/dry/pink. pt reported understanding of discharge instructions, assisted pt to front of ER with wheelchair. Vital Signs: 17:06 BP 107 / 74; Pulse 82; Resp 16; Temp 97.5; Pulse Ox 100% on R/A; Weight 63.05 kg; ph Height 4 ft. 11 in. (149.86 cm); 18:00 BP 113 / 69; Pulse 77; Resp 18; Pulse Ox 99% on R/A; ph 18:49 BP 122 / 80; Pulse 91; Resp 18; Pulse Ox 100% ; sv 19:29 BP 103 / 64; Pulse 90; Resp 17 S; Pulse Ox 100% on R/A; jd3 17:06 Body Mass Index 28.07 (63.05 kg, 149.86 cm) ph ED Course: 16:58 Patient arrived in ED. em1 17:02 Ce Byrne, RN is Primary Nurse. ph 17:06 Triage completed. ph 17:08 Arm band placed on Patient placed in an exam room, on a stretcher, on pulse oximetry. ph 17:09 Patient has correct armband on for positive identification. Bed in low position. Call ph light in reach. Side rails up X 1. Pulse ox on. NIBP on. Door closed. Noise minimized. Warm blanket given. 17:11 Maintain EMS IV. Dressing intact. Good blood return noted. Site clean \\T\\ dry. Gauge \\T\\ ph site: 18 RAC. 17:14 Enrique Segura PA is PHCP. jmm 17:14 Amado Foreman MD is Attending Physician. jmm 17:34 Warm blanket given. em1 17:34 Initial lab(s) drawn, by me, sent to lab. em1 17:35 T\\T\\S collected, blood band applied to patient. em1 18:[address] via stretcher. sv 19:00 CT Abd/Pelvis - IV Contrast Only In Process Unspecified. EDMS 19:48 Angel Paredes MD is Referral Physician. jmm 20:08 No provider procedures requiring assistance completed. IV discontinued, intact, jd3 bleeding controlled, No redness/swelling at site. Pressure dressing applied. Administered Medications: 19:34 CANCELLED (Physician Discretion): morphine 2 mg IM once; RASS on ADMIN: Combtv4, Very jd3 Agttd3, Agttd2, Rstlss1, AlertClm0, Drwsy-1, Lt Sdtn-2, Mod Sdtn-3, Dp Sdtn-4, UnArsble-5 19:37 Drug: Zofran 4 mg Route: IVP; Site: right antecubital; jd3 20:10 Follow up: Response: No adverse reaction jd3 19:37 Drug: morphine 2 mg Route: IVP; Site: right antecubital; jd3 20:10 Follow up: Response: No adverse reaction; RASS: Alert and Calm (0) jd3 Outcome: 19:49 Discharge ordered by . zaina 20:08 Discharged to home via wheelchair, with family. jd3 20:08 Condition: stable 20:08 Discharge instructions given to patient, family, Instructed on discharge instructions, follow up and referral plans. medication usage, Demonstrated understanding of instructions, follow-up care, medications, Prescriptions given X 1. 20:11 Patient left the ED. jd3 Signatures: Dispatcher [employer] EDNan Fierro RN RN sv Mickail, Joel, PA PA jmm Martinez, Eric em1 Ce Byrne, RN GUY Pastor Olivas RN RN jd3 Corrections: (The following items were deleted from the chart) 19:31 19:29 Pulse 90bpm; Resp 17bpm; Spontaneous; Pulse Ox 100% RA; jd3 jd3
--- NOTE | 2019-04-23 19:50 | EDPHYS ---
Physician Documentation [facility] Name: Ofe Fishman Age: 28 yrs Sex: Female : 1990 Arrival Date: 04/23/2019 Time: 16:58 Bed 7 Private MD: ED Physician Amado Foreman HPI: 04/23 17:27 This 28 yrs old Female presents to ER via EMS with complaints of vomiting, jmm diarrhea. 17:27 The patient presents to the emergency department with nausea, vomiting, diarrhea, jmm abdominal pain. Onset: The symptoms/episode began/occurred gradually, 1 week(s) ago. Possible causes: unknown. The symptoms are aggravated by nothing. The symptoms are alleviated by nothing. Associated signs and symptoms: Pertinent positives: abdominal pain, Pertinent negatives: fever. This is a 28 year old female with no chronic medical conditions that presents to the ED with complaints of vomiting and diarrhea which have been ongoing for obe 1 week. patient developed increased vomiting today which she describes as brown with coffee ground appearance. also complains of coffee ground stools. states her abdominal pain has decreased. . 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 - Social history:: Smoking status: Patient/guardian denies using tobacco. - Ebola Screening: : No symptoms or risks identified at this time. ROS: 17:27 Constitutional: Negative for fever, chills, and weight loss, Cardiovascular: Negative jmm for chest pain, palpitations, and edema, Respiratory: Negative for shortness of breath, cough, wheezing, and pleuritic chest pain. 17:27 Back: Negative for injury and pain, MS/Extremity: Negative for injury and deformity, Neuro: Negative for headache, weakness, numbness, tingling, and seizure. 17:27 Abdomen/GI: Positive for abdominal pain, nausea and vomiting, black/tarry stool. 17:27 All other systems are negative. Exam: 17:27 Constitutional: This is a well developed, well nourished patient who is awake, alert, jmm and in no acute distress. Head/Face: atraumatic. Eyes: EOMI, no conjunctival erythema appreciated ENT: Moist Mucus Membranes Neck: Trachea midline, Supple Chest/axilla: Normal chest wall appearance and motion. Cardiovascular: Regular rate and rhythm. No edema appreciated Respiratory: Normal respirations, no respiratory distress appreciated 17:27 Back: Normal ROM Skin: General appearance color normal MS/ Extremity: Moves all extremities, no obvious deformities appreciated, no edema noted to the lower extremities Neuro: Awake and alert, normal gait Psych: Behavior is normal, Mood is normal, Patient is cooperative and pleasant 17:27 Abdomen/GI: Inspection: abdomen appears normal, Bowel sounds: normal, Palpation: soft, nontender, in all quadrants. Vital Signs: 17:06 BP 107 / 74; Pulse 82; Resp 16; Temp 97.5; Pulse Ox 100% on R/A; Weight 63.05 kg; ph Height 4 ft. 11 in. (149.86 cm); 18:00 BP 113 / 69; Pulse 77; Resp 18; Pulse Ox 99% on R/A; ph 18:49 BP 122 / 80; Pulse 91; Resp 18; Pulse Ox 100% ; sv 19:29 BP 103 / 64; Pulse 90; Resp 17 S; Pulse Ox 100% on R/A; jd3 17:06 Body Mass Index 28.07 (63.05 kg, 149.86 cm) ph MDM: 17:22 Patient medically screened. [facility] 19:47 Data reviewed: vital signs, nurses notes. Counseling: I had a detailed discussion with zaina the patient and/or guardian regarding: the historical points, exam findings, and any diagnostic results supporting the discharge/admit diagnosis, lab results, radiology results, the need for outpatient follow up, to return to the emergency department if symptoms worsen or persist or if there are any questions or concerns that arise at home. ED course: Patient is alert and non toxic in appearance in the ED. Imaging studies indicate possible enteritis. Patient advised to follow up with GI for reevaluation. Family otherwise given strict return precautions. Understood and agrees with the plan of care. Advised to continue abx. . 04/23 17:14 Order name: Basic Metabolic Panel; Complete Time: 18:13 [facility] 04/23 17:14 Order name: CBC with Diff; Complete Time: 18:25 [facility] 04/23 17:14 Order name: Creatinine for Radiology; Complete Time: 17:55 [facility] 04/23 17:14 Order name: Hepatic Function; Complete Time: 18:13 [facility] 04/23 17:14 Order name: Lipase; Complete Time: 18:13 [facility] 04/23 17:22 Order name: Type And Screen; Complete Time: 19:19 [facility] 04/23 17:48 Order name: Occult Blood--Ancillary; Complete Time: 19:19 bd 04/23 18:26 Order name: CT Abd/Pelvis - IV Contrast Only; Complete Time: 19:34 [facility] 04/23 18:58 Order name: Urine Dipstick--Ancillary (enter results); Complete Time: 19:18 [facility] 04/23 18:58 Order name: Urine --Ancillary (enter results); Complete Time: 19:18 [facility] 04/23 17:14 Order name: IV Saline Lock; Complete Time: 17:33 [facility] 04/23 17:14 Order name: Labs collected and sent; Complete Time: 17:34 [facility] Administered Medications: 19:34 CANCELLED (Physician Discretion): morphine 2 mg IM once; RASS on ADMIN: Combtv4, Very jd3 Agttd3, Agttd2, Rstlss1, AlertClm0, Drwsy-1, Lt Sdtn-2, Mod Sdtn-3, Dp Sdtn-4, UnArsble-5 19:37 Drug: Zofran 4 mg Route: IVP; Site: right antecubital; jd3 20:10 Follow up: Response: No adverse reaction jd3 19:37 Drug: morphine 2 mg Route: IVP; Site: right antecubital; jd3 20:10 Follow up: Response: No adverse reaction; RASS: Alert and Calm (0) jd3 Disposition: 04/23/19 19:49 Discharged to Home. Impression: Vomiting, Diarrhea, unspecified. - Condition is Stable. - Discharge Instructions: Food Choices to Help Relieve Diarrhea, Adult, Nausea and Vomiting, Adult. - Prescriptions for Bentyl 20 mg Oral Tablet - take 2 tablet by ORAL route every 6 hours As needed; 40 tablet. - Medication Reconciliation Form, Thank You Letter, Antibiotic Education, Prescription Opioid Use form. - Follow up: Angel Paredes MD; When: Tomorrow; Reason: Recheck today's complaints, Continuance of care, Re-evaluation by your physician. Addendum: 04/26/2019 19:35 Co-signature as Attending Physician, Amado Foreman MD. r n Signatures: Dispatcher [employer] EDMS Enrique Segura, PA PA Amado Christie MD MD rn Hall, Patricia RN RN Pastor Vizcaino RN RN jd3 Corrections: (The following items were deleted from the chart) 04/23 18:50 18:27 Abdomen Limited+US.RAD.BRZ ordered. EDMS EDMS 19:34 19:34 morphine 2 mg IM once; RASS on ADMIN: Combtv4, Very Agttd3, Agttd2, Rstlss1, jd3 AlertClm0, Drwsy-1, Lt Sdtn-2, Mod Sdtn-3, Dp Sdtn-4, UnArsble-5 ordered. jd3 20:11 19:49 04/23/2019 19:49 Discharged to Home. Impression: Vomiting; Diarrhea, unspecified. jd3 Condition is Stable. Forms are Medication Reconciliation Form, Thank You Letter, Antibiotic Education, Prescription Opioid Use. Follow up: Angel Paredes; When: Tomorrow; Reason: Recheck today's complaints, Continuance of care, Re-evaluation by your physician. zaina
[2019-04-23 20:51] VITALS: TEMP 97.5; O2SAT 100
[2019-04-24 06:15] VITALS: BP 103/64
== END 2019-04-23 20:11 | disposition home or self-care (01) ==
LOC: ER 16:53
DX: R11.10 Vomiting, unspecified (principal); R19.7 Diarrhea, unspecified
CPT/HCPCS: 85025; 80048; 36415; 86900; 86850; 81025; 86901; 80076; 82272; 81003; 83690; 74177; 96375; 96374; 99284; Q9967; J2270; J2405

== ENCOUNTER 2019-06-29 13:11 | Emergency (ER) | payer BC ==
[2019-06-29 13:46] LABS: Urine Blood 1+ (NEG); Urine Glucose 1+ (NEG); Urine Protein 3+ (NEG); Urine Specific Gravity 1.005 (1.005-1.030)
[2019-06-29] MEDS ORDERED: ACETAMINOPHEN 500 MG TAB ONE (13:57)
[2019-06-29] MEDS ORDERED: ONDANSETRON 4 MG/2 ML VIAL ONE (13:57)
[2019-06-29] MEDS ORDERED: CEFTRIAXONE/SWI 1gm 1 GM/10 ML SYR ONE (13:57)
[2019-06-29] MEDS ORDERED: NA CHLORIDE 0.9% 2,000 ML ONE (13:57)
[2019-06-29 14:03] LABS: Absolute Lymphocytes (CBC) 0.6 K/uL (0.7-4.9); Basophils % 0.1 % (0-1.3); Hematocrit 35.8 % (36.0-45.0); Lymphocytes % 5.3 % (15.3-44.8); MPV 8.5 fL (7.6-11.3); RBC Red Blood Cell Count 4.33 M/uL (3.86-4.86)
[2019-06-29 14:15] LABS: Albumin 3.5 g/dL (3.4-5.0); Bilirubin Direct 0.3 mg/dL (0-0.2); Potassium 3.4 mmol/L (3.5-5.1); Protein, Total 7.6 g/dL (6.4-8.2)
[2019-06-29 14:35] LABS: Blood Morphology Comment NOTED (NOT SEEN); Platelet Estimate ADEQ; Stomatocytes 1+
--- NOTE | 2019-06-29 15:09 | RAD REPORT ---
EXAM DESCRIPTION: CT - Abdomen Pelvis W Contrast - 06/29/2019 2:43 pm CLINICAL HISTORY: ABD PAIN COMPARISON: Abdomen Pelvis W Contrast dated 04/23/2019; Abdomen Pelvis W Contrast dated 9 TECHNIQUE: Biphasic, helical CT imaging of the abdomen and pelvis was performed following 100 ml non -ionic IV contrast. No oral contrast given. All CT scans are performed using dose optimization technique as appropriate and may include automated exposure control or mA/KV adjustment according to patient size. FINDINGS: No suspicious findings in the lung bases. The liver, spleen, and pancreas show no suspicious findings. Cholecystectomy clips are present. No bi liary tree dilatation. Heterogeneous enhancement is present in the medial left renal parenchyma. There is thickening and enh ancement of the evans of the left ureter. No hydronephrosis. No obstructing calculus. Right ureter an d right kidney show normal enhancement pattern. No abnormal bladder wall thickening or enhancement. N o adrenal abnormalities. No uterine abnormality. A 2.5 centimeter right ovarian cyst is present. No dilated bowel loops or bowel wall thickening. Appendix is normal. Physiologic quantity of free flu id in the cul de sac. No hernia, mass or bulky lymphadenopathy. No suspicious bony findings. IMPRESSION: Left-sided pyelonephritis and ureteritis. No abscess or complicating renal factor.
[2019-06-29 15:19] LABS: Urine Bacteria <20 /HPF (<20); Urine Culture Reflex Order NOT NEEDED; Urine RBC <5 /HPF (NONE SEEN)
--- NOTE | 2019-06-29 16:19 | EDPHYS ---
Physician Documentation [facility] Name: Ofe Fishman Age: 28 yrs Sex: Female : 1990 Arrival Date: 06/29/2019 Time: 13:14 Bed 14 Private MD: ED Physician Fabby Kaplan HPI: 06/29 13:41 This 28 yrs old Female presents to ER via Ambulatory with complaints of la1 Urinary Problem. 13:41 The patient presents with flank pain, urinary symptoms, dysuria, frequency. Onset: The la1 symptoms/episode began/occurred 3 day(s) ago. 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 - Social history:: Smoking status: Patient denies any tobacco usage or history of. - Ebola Screening: : Patient negative for fever greater than or equal to 101.5 degrees Fahrenheit, and additional compatible Ebola Virus Disease symptoms Patient denies exposure to infectious person Patient denies travel to an Ebola-affected area in the 21 days before illness onset No symptoms or risks identified at this time. ROS: 13:43 Positive for urinary symptoms, burning with urination. la1 13:43 ENT: Negative for injury, pain, and discharge, Neck: Negative for injury, pain, and swelling, Cardiovascular: Negative for chest pain, palpitations, and edema, Respiratory: Negative for shortness of breath, cough, wheezing, and pleuritic chest pain. 13:43 Back: Negative for injury and pain. 13:43 MS/Extremity: Negative for injury and deformity, Neuro: Negative for headache, weakness, numbness, tingling, and seizure, Psych: Negative for depression, anxiety, suicide ideation, homicidal ideation, and hallucinations. 13:43 Constitutional: Positive for chills, fever. 13:43 Abdomen/GI: Positive for nausea. 13:43 Abdomen/GI: Positive for abdominal pain. 13:43 Back: Positive for flank pain, on the left. 13:43 : Positive for urinary symptoms, small amounts, burning with urination. Exam: 13:45 Constitutional: This is a well developed, well nourished patient who is awake, alert, la1 and in no acute distress. Head/Face: Normocephalic, atraumatic. Eyes: Pupils equal round and reactive to light, extra-ocular motions intact Periorbital areas with no swelling, redness, or edema. ENT: Mucous membranes moist. Neck: No Meningismus. Chest/axilla: Normal chest wall appearance and motion. Nontender with no deformity. No lesions are appreciated. Cardiovascular: Regular rate and rhythm with a normal S1 and S2. Respiratory: Lungs have equal breath sounds bilaterally, clear to auscultation No rales, rhonchi or wheezes noted. No increased work of breathing, no retractions or nasal flaring. Abdomen/GI: Soft, non-tender, with normal bowel sounds. No distension or tympany. No guarding or rebound. No evidence of tenderness throughout. Back: No spinal tenderness. No costovertebral tenderness. Full range of motion. Skin: Warm, dry with normal turgor. Normal color with no rashes, no lesions, and no evidence of cellulitis. MS/ Extremity: Pulses equal, no cyanosis. Neurovascular intact. Full, normal range of motion. Vital Signs: 13:30 BP 123 / 62; Pulse 122; Resp 16 S; Temp 102.5; Pulse Ox 98% on R/A; Weight 61.69 kg; iw Height 4 ft. 11 in. (149.86 cm); Pain 6/10; 14:29 BP 99 / 52; Pulse 82; Resp 16; Pulse Ox 99% on R/A; ae4 15:49 Temp 99.3(O); ae4 13:30 Body Mass Index 27.47 (61.69 kg, 149.86 cm) iw MDM: 13:31 Patient medically screened. la1 16:16 Data reviewed: vital signs, nurses notes, lab test result(s), radiologic studies, and la1 as a result, I will discharge patient. Data interpreted: Pulse oximetry: on room air is 99 %. Interpretation: normal. Counseling: I had a detailed discussion with the patient and/or guardian regarding: the historical points, exam findings, and any diagnostic results supporting the discharge/admit diagnosis, lab results, radiology results, the need for outpatient follow up, a family practitioner. Medication response: acetaminophen administration has normalized the patient's temperature. Response to treatment: the patient's symptoms have markedly improved after treatment, and as a result, I will discharge patient. Special discussion: Based on the history and exam findings, there is no indication for further emergent testing or inpatient evaluation. I discussed with the patient/guardian the need to see the primary care provider for further evaluation of the symptoms. I discussed with the patient/guardian the need to see the urologist for further evaluation of the symptoms. ED course: Pt able to tolerate PO, pain under control, has not vomited, is feeling much better, will send home with strict return precautions. 06/29 13:40 Order name: Basic Metabolic Panel; Complete Time: 14:23 nh06/29 13:40 Order name: CBC with Diff; Complete Time: 15:46 [facility] 06/29 13:40 Order name: Creatinine for Radiology; Complete Time: 14:23 [facility] 06/29 13:40 Order name: Hepatic Function; Complete Time: 14: nh06/29 13:40 Order name: Lipase; Complete Time: 14:24 nh06/29 13:40 Order name: Urine Microscopic Only; Complete Time: 15:46 nh06/29 13:40 Order name: CT Abd/Pelvis - IV Contrast Only; Complete Time: 15:46 nh06/29 13:44 Order name: Urine Dipstick--Ancillary (enter results); Complete Time: 14:23 06/29 13:45 Order name: Test, Serum; Complete Time: 14:24 nh06/29 14:35 Order name: Manual Differential; Complete Time: 15:46 EDOR 06/29 13:40 Order name: IV Saline Lock; Complete Time: 14: nh06/29 13:40 Order name: Labs collected and sent; Complete Time: 14: nh06/29 13:40 Order name: Urine Dipstick-Ancillary (obtain specimen); Complete Time: 14: nh06/29 13:40 Order name: Urine Test (obtain specimen); Complete Time: 14:02 la Administered Medications: 13:45 Drug: NS 0.9% 1000 ml Route: IV; Rate: 1000 ml; Site: right antecubital; bp 17:10 Follow up: IV Intake: 1000ml ae4 13:45 Drug: NS 0.9% 1000 ml Route: IV; Rate: 1000 ml; Site: right antecubital; bp 16:53 Follow up: IV Status: Completed infusion ae4 17:10 Follow up: IV Intake: 1000ml ae4 13:45 Drug: Tylenol 1000 mg Route: PO; bp 16:54 Follow up: Response: Temperature is decreased; Pain is decreased ae4 13:45 Drug: Zofran 4 mg Route: IVP; Site: right antecubital; bp 14:00 Follow up: Response: Nausea is decreased ae4 13:45 Drug: Rocephin 1 grams Route: IV; Rate: calculated rate; Site: right antecubital; bp Disposition: 06/30 15:46 Co-signature as Attending Physician, Fabby Kaplan MD I agree with the assessment ma2 and plan of care. Disposition: 06/29/19 16:19 Discharged to Home. Impression: Pyelonephritis and Urethritis- Left. - Condition is Stable. - Discharge Instructions: Pyelonephritis, Adult, Urinary Tract Infection, Adult. - Prescriptions for Cipro 500 mg Oral Tablet - take 1 tablet by ORAL route every 12 hours for 10 days; 20 tablet. Zofran 4 mg Oral Tablet - take 1 tablet by ORAL route every 12 hours As needed; 20 tablet. - Medication Reconciliation Form, Thank You Letter, Antibiotic Education form. - Follow up: Private Physician; When: 2 - 3 days; Reason: Recheck today's complaints, Re-evaluation by your physician. - Problem is new. - Symptoms have improved. Signatures: Dispatcher [employer] EDOR Lina Mckinley RN RN Khris Mary, CE-C ADVANCE SEAL DELIVERY SYSTEM MAINTAINER-Cla1 Orion Kenyon RN Fabby Khan MD MD ma2 Jae Crabtree RN RN ae4 Corrections: (The following items were deleted from the chart) 06/29 16:55 16:19 06/29/2019 16:19 Discharged to Home. Impression: Pyelonephritis and Urethritis- ae4 Left. Condition is Stable. Forms are Medication Reconciliation Form, Thank You Letter, Antibiotic Education, Prescription Opioid Use. Follow up: Private Physician; When: 2 - 3 days; Reason: Recheck today's complaints, Re-evaluation by your physician. Problem is new. Symptoms have improved. la1
--- NOTE | 2019-06-29 16:19 | ER ---
Nurse's Notes [facility] Name: Ofe Fishman Age: 28 yrs Sex: Female : 1990 Arrival Date: 06/29/2019 Time: 13:14 Bed 14 Private MD: Diagnosis: Pyelonephritis and Urethritis- Left Presentation: 06/29 13:28 Presenting complaint: Patient states: pain with urination, bladder pain, low back pain, iw vaginal itching, fever X 2 days , vomiting last night. Transition of care: patient was not received from another setting of care. Onset of symptoms was June 27, 2019. Risk Assessment: Do you want to hurt yourself or someone else? Patient reports no desire to harm self or others. Initial Sepsis Screen: Does the patient meet any 2 criteria? Temp <36.0*C (96.8*F)) or > 38.3*C (100.9*F). HR > 90 bpm. Does the patient have a suspected source of infection? Yes: Dysuria/Frequency/Urgency/UTI. Care prior to arrival: None. 13:28 Method Of Arrival: Ambulatory iw 13:28 Acuity: URIEL 3 iw Triage Assessment: 17:07 General: Appears. ae4 17:09 General: Behavior is calm, cooperative. Pain: Complains of pain in left low back and ae4 right low back. 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 - Social history:: Smoking status: Patient denies any tobacco usage or history of. - Ebola Screening: : Patient negative for fever greater than or equal to 101.5 degrees Fahrenheit, and additional compatible Ebola Virus Disease symptoms Patient denies exposure to infectious person Patient denies travel to an Ebola-affected area in the 21 days before illness onset No symptoms or risks identified at this time. Screenin:28 Abuse screen: Denies threats or abuse. Nutritional screening: No deficits noted. ae4 Tuberculosis screening: No symptoms or risk factors identified. Fall Risk None identified. Assessment: 13:45 General: Appears in no apparent distress. uncomfortable, Behavior is calm, cooperative. ae4 Pain: Complains of pain in left low back and right low back. Neuro: Level of Consciousness is awake, alert, obeys commands, Oriented to person, place, time, situation, Appropriate for age. Cardiovascular: Patient's skin is warm and dry. Respiratory: Airway is patent. GI: No signs and/or symptoms were reported involving the gastrointestinal system. : Urine is cloudy, Reports burning with urination, pain urgency, urinary frequency. EENT: No signs and/or symptoms were reported regarding the EENT system. Derm: Skin is pale. Musculoskeletal: No signs and/or symptoms reported regarding the musculoskeletal system. 14:27 Reassessment: Patient is resting with eyes closed, respirations even and unlabored, ae4 pillow provided. Patient awakens easily to voice. IV fluids still infusing. 15:50 Reassessment: Provider at bedside discussing plan of care. ae4 Vital Signs: 13:30 BP 123 / 62; Pulse 122; Resp 16 S; Temp 102.5; Pulse Ox 98% on R/A; Weight 61.69 kg; iw Height 4 ft. 11 in. (149.86 cm); Pain 6/10; 14:29 BP 99 / 52; Pulse 82; Resp 16; Pulse Ox 99% on R/A; ae4 15:49 Temp 99.3(O); ae4 13:30 Body Mass Index 27.47 (61.69 kg, 149.86 cm) iw ED Course: 13:14 Patient arrived in ED. mr 13:15 Khris Mary FNP-C [facility]. la1 13:15 Fabby Kaplan MD is Attending Physician. la1 13:29 Triage completed. iw 13:30 Arm band placed on. iw 13:48 Radiology exam delayed due to lab results not completed at this time. (BUN/Creatinine) bq test not completed at this time. 14:00 Inserted saline lock: 20 gauge in right antecubital area, using aseptic technique. ae4 Blood collected. 14:14 Jae Crabtree RN is Primary Nurse. ae4 14:28 Placed in gown. Bed in low position. Call light in reach. Side rails up X 1. Pulse ox ae4 on. NIBP on. Door closed. Lights dimmed. Pillow given. Light sheet provided.. 14:42 CT completed. Patient tolerated procedure well. Patient moved back from CT. mw3 14:44 CT Abd/Pelvis - IV Contrast Only In Process Unspecified. EDMS 17:07 No provider procedures requiring assistance completed. IV discontinued, intact, ae4 bleeding controlled, No redness/swelling at site. Pressure dressing applied. Administered Medications: 13:45 Drug: NS 0.9% 1000 ml Route: IV; Rate: 1000 ml; Site: right antecubital; bp 17:10 Follow up: IV Intake: 1000ml ae4 13:45 Drug: NS 0.9% 1000 ml Route: IV; Rate: 1000 ml; Site: right antecubital; bp 16:53 Follow up: IV Status: Completed infusion ae4 17:10 Follow up: IV Intake: 1000ml ae4 13:45 Drug: Tylenol 1000 mg Route: PO; bp 16:54 Follow up: Response: Temperature is decreased; Pain is decreased ae4 13:45 Drug: Zofran 4 mg Route: IVP; Site: right antecubital; bp 14:00 Follow up: Response: Nausea is decreased ae4 13:45 Drug: Rocephin 1 grams Route: IV; Rate: calculated rate; Site: right antecubital; bp Intake: 17:10 IV: 1000ml; Total: 1000ml. ae4 17:10 IV: 1000ml; Total: 2000ml. ae4 Outcome: 16:19 Discharge ordered by . la1 16:55 Patient left the ED. ae4 17:09 Discharged to home ambulatory. ae4 17:09 Condition: stable 17:09 Discharge instructions given to patient, Instructed on discharge instructions, follow up and referral plans. medication usage, Demonstrated understanding of instructions, Prescriptions given X 2. Signatures: Dispatcher [employer] EDSC Priya PereyraAlvina Irene, RN RN iw Khris Mary, APPLICATION SUPPORT-C APPLICATION SUPPORT-Cla1 Orion Kenyon RN RN bp Willis, Michelle mw3 Jae Crabtree RN RN ae4 Corrections: (The following items were deleted from the chart) 13:31 13:28 Initial Sepsis Screen: Does the patient meet any 2 criteria? No. Patient's iw initial sepsis screen is negative. Does the patient have a suspected source of infection? No. Patient's initial sepsis screen is negative. iw
[2019-06-29 18:17] VITALS: BP 99/52; O2SAT 99
[2019-06-29 18:18] VITALS: TEMP 99.3
== END 2019-06-29 16:55 | disposition home or self-care (01) ==
LOC: ER 13:11
DX: N12 Tubulo-interstitial nephritis, not specified as acute or chronic (principal); N34.2 Other urethritis
CPT/HCPCS: 96361; 85025; 80048; 36415; 84703; 80076; 83690; 74177; 96375; 96374; 99284; Q9967; J0696; J7030; J2405; 81003; 81015

== ENCOUNTER 2019-07-01 20:02 | Emergency (ER) | payer BC ==
[2019-07-01 20:59] LABS: Absolute Lymphocytes (CBC) 1.1 K/uL (0.7-4.9); Basophils % 0.4 % (0-1.3); Hematocrit 32.5 % (36.0-45.0); Lymphocytes % 13.3 % (15.3-44.8); MPV 8.7 fL (7.6-11.3); RBC Red Blood Cell Count 3.92 M/uL (3.86-4.86)
[2019-07-01] MEDS ORDERED: NA CHLORIDE 0.9% 1,000 ML ONE ×2 (21:12→23:41)
[2019-07-01] MEDS ORDERED: CEFTRIAXONE/SWI 1gm 1 GM/10 ML SYR ONE (21:12)
[2019-07-01 21:14] LABS: BUN Blood Urea Nitrogen 4 mg/dL (7-18); Bicarbonate 29 mmol/L (21-32); Glucose Level 88 mg/dL (74-106); Potassium 3.4 mmol/L (3.5-5.1); Sodium Level 137 mmol/L (136-145)
[2019-07-01] MEDS ORDERED: PROMETHAZINE INJ 25 MG/ML AMP ONE (22:23)
[2019-07-01] MEDS ORDERED: FENTANYL CITR 100 MCG/2 ML ONE ×2 (22:24→23:21)
[2019-07-02 01:24] LABS: Urine Culture Reflex Order NOT NEEDED
[2019-07-02 01:24] LABS: Urine Blood NEGATIVE (NEG); Urine Glucose NEGATIVE (NEG); Urine Protein NEGATIVE (NEG)
[2019-07-02 01:26] LABS: Urine Bacteria <20 /HPF (<20); Urine RBC <5 /HPF (NONE SEEN)
--- NOTE | 2019-07-02 01:40 | EDPHYS ---
Physician Documentation [facility] Name: Ofe Fishman Age: 28 yrs Sex: Female : 1990 Arrival Date: 07/01/2019 Time: 20:04 Bed 18 Private MD: ED Physician Fabby Kaplan HPI: 07/01 21:28 This 28 yrs old Female presents to ER via Ambulatory with complaints of snw Urinary Problem. 21:28 The patient presents with abdominal pain in the right upper quadrant, in the left lower snw quadrant. Onset: The symptoms/episode began/occurred 4 day(s) ago, and became persistent. The symptoms do not radiate. Associated signs and symptoms: Pertinent positives: nausea and vomiting, constipation, Pertinent negatives: diarrhea. The symptoms are described as steady, vague. Severity of pain: At its worst the pain was moderate. The patient has not experienced similar symptoms in the past. The patient has been recently seen by a physician: The patient has been recently seen at the [facility] Emergency Department, this week, for similar complaints labs were performed, CT scan was performed, pt states she is unable to keep abx down and was told to return to ED. 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 - Social history:: Smoking status: Patient denies any tobacco usage or history of. - Ebola Screening: : No symptoms or risks identified at this time. ROS: 21:27 Eyes: Negative for injury, pain, redness, and discharge, ENT: Negative for injury, snw pain, and discharge, Neck: Negative for injury, pain, and swelling, Cardiovascular: Negative for chest pain, palpitations, and edema, Respiratory: Negative for shortness of breath, cough, wheezing, and pleuritic chest pain. 21:27 : Negative for injury, bleeding, discharge, and swelling, MS/Extremity: Negative for injury and deformity, Skin: Negative for injury, rash, and discoloration. 21:27 Constitutional: Positive for body aches, malaise, poor PO intake. 21:27 Abdomen/GI: Positive for abdominal pain, nausea, vomiting, constipation. 21:27 Back: Positive for flank pain, bilaterally. 21:27 Neuro: Positive for headache. Exam: 21:25 Constitutional: This is a well developed, well nourished patient who is awake, alert, snw and in no acute distress. Head/Face: Normocephalic, atraumatic. Eyes: Pupils equal round and reactive to light, extra-ocular motions intact. Lids and lashes normal. Conjunctiva and sclera are non-icteric and not injected. Cornea within normal limits. Periorbital areas with no swelling, redness, or edema. ENT: Nares patent. No nasal discharge, no septal abnormalities noted. Tympanic membranes are normal and external auditory canals are clear. Oropharynx with no redness, swelling, or masses, exudates, or evidence of obstruction, uvula midline. Mucous membranes moist. Neck: Trachea midline, no thyromegaly or masses palpated, and no cervical lymphadenopathy. Supple, full range of motion without nuchal rigidity, or vertebral point tenderness. No Meningismus. Chest/axilla: Normal chest wall appearance and motion. Nontender with no deformity. No lesions are appreciated. Cardiovascular: Regular rate and rhythm with a normal S1 and S2. No gallops, murmurs, or rubs. Normal PMI, no JVD. No pulse deficits. Respiratory: Lungs have equal breath sounds bilaterally, clear to auscultation and percussion. No rales, rhonchi or wheezes noted. No increased work of breathing, no retractions or nasal flaring. Back: No spinal tenderness. No costovertebral tenderness. Full range of motion. Skin: Warm, dry with normal turgor. Normal color with no rashes, no lesions, and no evidence of cellulitis. MS/ Extremity: Pulses equal, no cyanosis. Neurovascular intact. Full, normal range of motion. Neuro: Awake and alert, GCS 15, oriented to person, place, time, and situation. Cranial nerves II-XII grossly intact. Motor strength 5/5 in all extremities. Sensory grossly intact. Cerebellar exam normal. Normal gait. Psych: Awake, alert, with orientation to person, place and time. Behavior, mood, and affect are within normal limits. 21:25 Abdomen/GI: Inspection: abdomen appears normal, Bowel sounds: normal, Palpation: mild abdominal tenderness, in the right upper quadrant and left upper quadrant, moderate abdominal tenderness. Vital Signs: 20:28 BP 110 / 55; Pulse 77; Resp 16; Temp 98.1; Pulse Ox 99% on R/A; Weight 61.69 kg; Height aa1 4 ft. 11 in. (149.86 cm); Pain 9/10; 21:30 BP 96 / 49; Pulse 81; Resp 16; Pulse Ox 100% on R/A; jb4 22:30 BP 110 / 62; Pulse 71; Resp 16; Pulse Ox 94% on R/A; jb4 22:58 BP 106 / 49 LA Supine (auto/reg); Pulse 54; Pulse Ox 100% on R/A; jp3 23:00 BP 117 / 73 LA Sitting (auto/reg); Pulse 68; Pulse Ox 100% on R/A; jp3 23:02 BP 112 / 59 LA Standing (auto/reg); Pulse 68; Pulse Ox 100% on R/A; jp3 07/02 00:00 BP 97 / 51; Pulse 63; Pulse Ox 100% on R/A; jp3 01:00 BP 123 / 53; Pulse 58; Resp 16; Pulse Ox 98% on R/A; jb4 07/01 20:28 Body Mass Index 27.47 (61.69 kg, 149.86 cm) aa1 MDM: 07/01 20:19 Patient medically screened. snw 07/02 00:32 Data reviewed: vital signs, nurses notes. Data interpreted: Pulse oximetry: on is 100 snw %. Interpretation: normal. Counseling: I had a detailed discussion with the patient and/or guardian regarding: the historical points, exam findings, and any diagnostic results supporting the discharge/admit diagnosis, lab results, radiology results. ED course: pt dx with pyelonephritis and ureteritis. ED course: Orders placed for reflex Urine culture. UA in ED + nitrite, positive 3+ leukocytes, urine micro however was negative and culture was not done as it was deemed "not needed". 07/01 20:35 Order name: Basic Metabolic Panel; Complete Time: 21:19 snw 07/01 20:35 Order name: CBC with Diff; Complete Time: 21:02 snw 07/01 20:35 Order name: Blood Culture Adult (2) snw 07/01 22:52 Order name: Urine Microscopic Only; Complete Time: 01:31 EDMS 07/01 22:52 Order name: Urine Culture [facility] 07/02 00:58 Order name: Urine Dipstick--Ancillary (enter results) 2 07/01 20:35 Order name: Labs collected and sent; Complete Time: 20:49 snw 07/01 22:57 Order name: Orthostatics; Complete Time: 23:08 snw Administered Medications: 07/01 21:35 Drug: NS 0.9% 1000 ml Route: IV; Rate: 1 bolus; Site: right antecubital; [facility] 21:35 Drug: Rocephin 1 grams Route: IV; Rate: calculated rate; Site: right antecubital; [facility] 22:30 Drug: Phenergan 6.25 mg Route: IVP; Site: right antecubital; [facility] 07/02 01:59 Follow up: Response: No adverse reaction [facility] 07/01 22:35 Drug: fentaNYL (PF) 25 mcg {Note: rass score 0.} Route: IVP; Site: right antecubital; [facility] 23:00 Follow up: Response: No adverse reaction; Pain is decreased; RASS: Alert and Calm (0) [facility] 23:25 Drug: fentaNYL (PF) 25 mcg {Note: Rass score 0.} Route: IVP; Site: right antecubital; [facility] 07/02 00:00 Follow up: Response: No adverse reaction; Pain is decreased; RASS: Alert and Calm (0) [facility] 07/01 23:46 Drug: NS 0.9% 1000 ml Route: IV; Rate: 1 bolus; Site: right antecubital; [facility] 07/02 00:45 Follow up: Response: No adverse reaction; IV Status: Completed infusion; IV Intake: jb4 1000ml Disposition: 07/02/19 01:39 Discharged to Home. Impression: Vomiting, unspecified, Urinary tract infection, site not specified. - Condition is Stable. - Discharge Instructions: Nausea and Vomiting, Adult, Ovarian Cyst, Urinary Tract Infection, Adult, Rehydration, Adult. - Prescriptions for Mobic 7.5 mg Oral Tablet - take 1 tablet by ORAL route once daily take with food; 20 tablet. promethazine 25 mg Oral Tablet - take 1 tablet by ORAL route every 6 hours As needed; 20 tablet. - Work release form, Medication Reconciliation Form, Thank You Letter, Antibiotic Education, Prescription Opioid Use form. - Follow up: Private Physician; When: 5 - 6 days; Reason: Recheck today's complaints, Continuance of care, Re-evaluation by your physician. Follow up: Emergency Department; When: As needed; Reason: Worsening of condition. - Notes: Please finish Cipro. Urine has been sent for culture. Signatures: Dispatcher [employer] [facility] Vi Paul RN RN aa1 Marietta Garcia, STRAIGHTENER AND ALIGNER-C STRAIGHTENER AND ALIGNER-Csnw Sarabjit Weaver RN RN jb4 Corrections: (The following items were deleted from the chart) 07/01 23: 22:52 UA MICROSCOPIC+U.LAB.BRZ ordered. [facility] 23: 22:52 Urine Culture+BA.LAB.BRZ ordered. [facility] 07/02 01:59 01:39 07/02/2019 01:39 Discharged to Home. Impression: Vomiting, unspecified; Urinary jb4 tract infection, site not specified. Condition is Stable. Forms are Medication Reconciliation Form, Thank You Letter, Antibiotic Education, Prescription Opioid Use. Follow up: Private Physician; When: 5 - 6 days; Reason: Recheck today's complaints, Continuance of care, Re-evaluation by your physician. Follow up: Emergency Department; When: As needed; Reason: Worsening of condition. snw
--- NOTE | 2019-07-02 01:40 | ER ---
Nurse's Notes [facility] Name: Ofe Fishman Age: 28 yrs Sex: Female : 1990 Arrival Date: 07/01/2019 Time: 20:04 Bed 18 Private MD: Diagnosis: Vomiting, unspecified;Urinary tract infection, site not specified Presentation: 07/01 20:25 Presenting complaint: Patient states: she was seen here 2 days ago and diagnosed with a aa1 kidney infection and was told that if she didn't get better to come back so she could be admitted and pt reports she is still having a lot of pain and has not been able to eat or drink without getting nauseated. Transition of care: patient was not received from another setting of care. Onset of symptoms was June 28, 2019. Risk Assessment: Do you want to hurt yourself or someone else? Patient reports no desire to harm self or others. Initial Sepsis Screen: Does the patient meet any 2 criteria? No. Patient's initial sepsis screen is negative. Does the patient have a suspected source of infection? Yes: Dysuria/Frequency/Urgency/UTI. Care prior to arrival: None. 20:25 Method Of Arrival: Ambulatory aa1 20:25 Acuity: URIEL 3 aa1 Triage Assessment: 20:28 General: Appears in no apparent distress. comfortable, Behavior is calm, cooperative, aa1 appropriate for age. [employer]: 20:28 LMP 06/13/2019 aa1 Historical: - Allergies: 20:28 No Known Allergies; aa1 - PMHx: 20:28 None; aa1 - PSHx: 20:28 Cholecystectomy; aa1 - Immunization history:: Flu vaccine is not up to date. - Social history:: Smoking status: Patient denies any tobacco usage or history of. - Ebola Screening: : No symptoms or risks identified at this time. Screenin:20 Abuse screen: Denies threats or abuse. Nutritional screening: No deficits noted. jb4 Tuberculosis screening: No symptoms or risk factors identified. Fall Risk None identified. Assessment: 20:20 General: Appears in no apparent distress. uncomfortable, Behavior is calm, cooperative, jb4 appropriate for age. Pain: Complains of pain in low back area Pain does not radiate. Pain currently is 10 out of 10 on a pain scale. Neuro: Level of Consciousness is awake, alert, obeys commands, Oriented to person, place, time, situation. Cardiovascular: Patient's skin is warm and dry. Respiratory: Airway is patent Respiratory effort is even, unlabored, Respiratory pattern is regular, symmetrical. GI: Reports nausea, vomiting. : Reports burning with urination, pain in lower back with urination, urgency, urinary frequency. EENT: No signs and/or symptoms were reported regarding the EENT system. Derm: Skin is intact, Skin is pink, warm \T\ dry. Musculoskeletal: Circulation, motion, and sensation intact. Range of motion: intact in all extremities. 21:30 Reassessment: Patient appears in no apparent distress at this time. Patient and/or jb4 family updated on plan of care and expected duration. Pain level reassessed. Patient is alert, oriented x 3, equal unlabored respirations, skin warm/dry/pink. 22:30 Reassessment: Patient appears in no apparent distress at this time. Patient and/or jb4 family updated on plan of care and expected duration. Pain level reassessed. Patient is alert, oriented x 3, equal unlabored respirations, skin warm/dry/pink. Patient states feeling better. 23:01 Reassessment: Patient appears in no apparent distress at this time. Patient and/or jb4 family updated on plan of care and expected duration. Pain level reassessed. Patient is alert, oriented x 3, equal unlabored respirations, skin warm/dry/pink. 07/02 00:00 Reassessment: Patient appears in no apparent distress at this time. Patient and/or jb4 family updated on plan of care and expected duration. Pain level reassessed. Patient is alert, oriented x 3, equal unlabored respirations, skin warm/dry/pink. 01:00 Reassessment: Patient appears in no apparent distress at this time. Patient and/or jb4 family updated on plan of care and expected duration. Pain level reassessed. Patient is alert, oriented x 3, equal unlabored respirations, skin warm/dry/pink. 01:53 Reassessment: Patient appears in no apparent distress at this time. Patient and/or jb4 family updated on plan of care and expected duration. Pain level reassessed. Patient is alert, oriented x 3, equal unlabored respirations, skin warm/dry/pink. Vital Signs: 07/01 20:28 BP 110 / 55; Pulse 77; Resp 16; Temp 98.1; Pulse Ox 99% on R/A; Weight 61.69 kg; Height aa1 4 ft. 11 in. (149.86 cm); Pain 9/10; 21:30 BP 96 / 49; Pulse 81; Resp 16; Pulse Ox 100% on R/A; jb4 22:30 BP 110 / 62; Pulse 71; Resp 16; Pulse Ox 94% on R/A; jb4 22:58 BP 106 / 49 LA Supine (auto/reg); Pulse 54; Pulse Ox 100% on R/A; jp3 23:00 BP 117 / 73 LA Sitting (auto/reg); Pulse 68; Pulse Ox 100% on R/A; jp3 23:02 BP 112 / 59 LA Standing (auto/reg); Pulse 68; Pulse Ox 100% on R/A; jp3 07/02 00:00 BP 97 / 51; Pulse 63; Pulse Ox 100% on R/A; jp3 01:00 BP 123 / 53; Pulse 58; Resp 16; Pulse Ox 98% on R/A; jb4 07/01 20:28 Body Mass Index 27.47 (61.69 kg, 149.86 cm) aa1 ED Course: 07/01 20:04 Patient arrived in ED. cf2 20:13 Marietta Garcia FNP-C [facility]. snw 20:13 Fabby Kaplan MD is Attending Physician. snw 20:23 Sarabjit Weaver, GUY is Primary Nurse. jb4 20:27 Triage completed. aa1 20:28 Arm band placed on right wrist. aa1 20:42 No provider procedures requiring assistance completed. Initial lab(s) drawn, by me, ca1 sent to lab. Inserted saline lock: 20 gauge in right antecubital area, using aseptic technique. 20:49 Blood Culture Adult (2) Sent. ca1 21:19 Second set of blood cultures drawn by me. jp3 21:21 Bed in low position. Call light in reach. Side rails up X 1. Warm blanket given. Verbal jp3 reassurance given. Pulse ox on. NIBP on. 07/02 00:15 Pillow given. jp3 01:53 IV discontinued, intact, bleeding controlled, No redness/swelling at site. Pressure jb4 dressing applied. Administered Medications: 07/01 21:35 Drug: NS 0.9% 1000 ml Route: IV; Rate: 1 bolus; Site: right antecubital; 4 21:35 Drug: Rocephin 1 grams Route: IV; Rate: calculated rate; Site: right antecubital; jb4 22:30 Drug: Phenergan 6.25 mg Route: IVP; Site: right antecubital; 4 07/02 01:59 Follow up: Response: No adverse reaction jb4 07/01 22:35 Drug: fentaNYL (PF) 25 mcg {Note: rass score 0.} Route: IVP; Site: right antecubital; jb4 23:00 Follow up: Response: No adverse reaction; Pain is decreased; RASS: Alert and Calm (0) [facility] 23:25 Drug: fentaNYL (PF) 25 mcg {Note: Rass score 0.} Route: IVP; Site: right antecubital; 4 07/02 00:00 Follow up: Response: No adverse reaction; Pain is decreased; RASS: Alert and Calm (0) [facility] 07/01 23:46 Drug: NS 0.9% 1000 ml Route: IV; Rate: 1 bolus; Site: right antecubital; 4 07/02 00:45 Follow up: Response: No adverse reaction; IV Status: Completed infusion; IV Intake: jb4 1000ml Intake: 00:45 IV: 1000ml; Total: 1000ml. 4 Outcome: 01:39 Discharge ordered by MD. guan 01:53 Discharged to home [facility]ulatory. [facility] 01:53 Condition: stable 01:53 Discharge instructions given to patient, Instructed on discharge instructions, follow up and referral plans. medication usage, Demonstrated understanding of instructions, follow-up care, medications, Prescriptions given X 2. 01:59 Patient left the ED. jb4 Signatures: Vi Paul RN RN aa1 Marietta Garcia, [employer]-C [employer]-Csnw Sarabjit Weaver RN RN jb4 Ruben Orozco jp3 Snehal Devlin RN RN ca1 Vanessa Larson cf2
[2019-07-02 16:39] VITALS: TEMP 98.1
[2019-07-02 16:50] VITALS: BP 123/53; O2SAT 98
== END 2019-07-02 01:59 | disposition home or self-care (01) ==
LOC: ER 20:02
DX: N39.0 Urinary tract infection, site not specified (principal)
CPT/HCPCS: 96361; 87040 ×2; 87088; 85025; 80048; 36415; 96375; 96374; 99284; J2550; J3010 ×2; J0696; J7030 ×2; 81003; 81015; 87086